=== PATIENT | female | born 1995 | race Caucasian/White ===

== ENCOUNTER 2020-08-26 11:30 | Outpatient (RCR) | payer OTHER, SELFPAY ==
--- NOTE | 2020-08-10 11:56 | STOPEVAL ---
SPEECH THERAPY INITIAL EVALUATION: Thank you for referring Tawanna Hooper to [facility].? The patient is scheduled to be seen for a trial therapy? x1/week for 4 weeks. Please review, sign, date and return this plan of care IESHA. I agree with and certify that the following plan of care is medically necessary. Referring Physician Date Attending Provider: Cristina Browning, * Outpatient Evaluation Start: 08/09/20 10:54 Freq: Status: Active Protocol: Document 08/09/20 16:10 CONSUELO (Rec: 08/09/20 16:11 [email or web address] [id number]) Therapy Assessment Status Assessment Status Assessment Status Evaluation Outpatient Past Medical History Past Medical History Source of Past Medical History Family/Significant Other Evaluation Information Problem Diagnosis developmentally delay; autism Onset childhood Additional Evaluation Detail Pt is in a work program through [employer] as well as receives Help at Home . She was receiving speech therapy through the work program x 1 per week until it was closed related to COVID. Pt's step father attended session with pt; a communication device ( Proxtalker by [employer]) was brought along. Device appeared to be old but per pt's father , it is the device the pt chooses to utilize the most. They have reportedly trialed tablets of various kinds but the pt destroys them but actually bending them, stabs them with a screwdriver, or smashes them. Per step father, pt is able to state immediate needs and wants at times using single words . They encourage use of the AAC device but appear limited due to pt behaviors. Reportedly, it is very rare the pt will string together several words as the father stated he only once heard her state, Please turn off the lights . He stated further that with prompts, she will s
--- NOTE | 2020-08-26 16:36 | PCSTNOTE ---
REQUEST FOR SPEECH GENERATING DEVICE (SGD) FUNDING Demographic Information: Patient: Tawanna Hooper Address: [address] , [place] [id number] Primary Contact : Luisana Mcmullen Date of : 1995 Medical Diagnosis: Autism Communication Diagnosis: Mixed Receptive Expressive Language Disorder Date of Onset: Insurance number: [id number] Physician: Dr. Cristina Browning Phone: Speech Language Pathologist: Leena Linares M.S. [facility] Date of this report: 08/26/20 Impairment Type and Severity Patient demonstrates severe difficulty expressing needs, thoughts, ideas, and asking questions. Patient demonstrates an inability to verbally meet daily and medical needs. Patient demonstrates frustration due to limited ability to communicate. Anticipated Course of Impairment Patient?s communication impairment is static. Despite aggressive direct speech therapy services patient?s ability to communicate basic needs and wants remains limited. Patient does not currently have a functional communication system. Patient is unable to direct and manage his/her medical care. Speech and Language Skills See attached initial speech-language evaluation on 08-10-20. Severe receptive and expressive language skills noted per evaluation. Cognitive Skills Patient has demonstrated the cognitive ability to use a SGD. Physical Status Patient displays the fine motor skills necessary to use effectively. Vision Status Patient has no impairments with vision and has demonstrated the ability to functionally see and use SGDs. Hearing Status Patient has no impairments with hearing and has demonstrated the ability to functionally hear SGDs. Specific Daily-Functional Communication Needs Patient must communicate regarding daily activities, personal needs, medical needs, and social interactions. Patient must communicate in these environments: home, school, and in the community. Patient must communicate with these partners: parents, peers, therapists, doctors other family and friends. Patient must communicate messages to express daily needs (hunger, thirst, pain), make requests, ask questions, offer information, express opinions/feelings and provide information. Ability to Meet Communication Needs without an SGD Patient?s speech does not allow patient to functionally meet all communication needs. Recommended Medicare/Medicaid Device Category The features identified as being required for patient to be a functional communicator describe additional tags /vocabulary for current communication system in the E2510 device category (i.e., synthesized speech, message formulation via multi-button combinations and other methods, multiple access methods). SGD and accessories recommended Tawanna's step father has joined her for all therapy sessions and has been helpful in communicating her history and current limits of the dedicated communication device she has. Her current available communication system being used is a ProxTalker by [employer] Prox Talker/AAC. This durable system has been used for the past 18 months and patient and family find it be useful. Tawanna has available to her 100 pictures with velcro that are placed onto as many as 6 buttons that can then form a complete sentence. Tawanna will utilize echolalia and repeat 3-4 word sentences but spontaneous communication is typically used with her current AAC system for highly motivating options such as bathroom and shopping . It is rare for her to use more than one word to communicate spontaneously although in therapy she was receptive to use longer word combinations with prompting and for rewards. It should be noted family is very capable and willing to edit buttons and build on more vocabulary however, at this time, they are limited due to the limited number of tags/pictures available for the system. For example, she can use I want b
--- NOTE | 2021-03-08 12:27 | PCSTNOTE ---
Parent, Mg, called today to ask about getting requested equipment. [employer] spoke to him to advise that complete evaluation was sent to physician and contact was attempted with vendor to get funded through insurance. Vendor was not able to provide solution and did not reply to e-mails requesting a fax to send request so that family may obtain needed equipment through insurance funding. Advised family we would again send a copy of the evaluation in hopes that they may be able to directly request the equipment needed.
== END 2020-10-05 12:50 | disposition home or self-care (01) ==
LOC: ANHST 11:30
PROVIDERS: PCP Family Medicine; Visit Provider Family Medicine
DX: R62.50 Unspecified lack of expected normal physiological development in childhood (principal)
CPT/HCPCS: 92507; 92607

== ENCOUNTER 2021-06-21 11:15 | Outpatient (RCR) | payer OTHER, SELFPAY ==
--- NOTE | 2021-04-05 14:13 | PEDSTEVAL ---
Thank you for referring Tawanna Hooper to [facility].? The patient is scheduled to be seen for therapy? 1x/week for 12 weeks. Please review, sign, date and return this plan of care IESHA. I agree with and certify that the following plan of care is medically necessary. Referring Physician Date Admitting Provider: Attending Provider: Cristina Browning, Referring Provider: COLEEN Pediatric Evaluation Start: 04/05/21 10:35 Freq: Status: Active Protocol: Document 04/05/21 09:45 Hakan (Rec: 04/05/21 14:13 [email or web address] [email or web address]) Therapy Assessment Status Assessment Status Assessment Status Evaluation Pt/Family Concern/Reason for Referral . Pt/Family Concern/Reason for Referral Tawanna has Autism and struggles with making her desires known or communicating feelings. Diagnosis Autism,Mixed Receptive/ Expressive Language Disorder Outpatient Past Medical History Past Medical History Source of Past Medical History Family/Significant Other Other Source of Past Medical History Mg Mcgarry Neurological History Hx Seizures Yes Cardiovascular History Hx Cardiac Disorders No Significant History Respiratory History Hx Respiratory Disorders No Significant History Gastrointestinal History Hx Other Gastrointestinal Disorders Yes: vomits on a daily basis, never seen GI Genitourinary History Hx Urinary Tract Infection Yes: chronic, partially due to hygiene Musculoskeletal History Hx Musculoskeletal Disorders No Significant History Hematological History Hx Hematological Disorders No Significant History Endocrine History Hx Endocrine Disorders No Significant History HEENT History Hx HEENT Disorders No Significant History Integumentary History Hx Skin Disorders No Significant History Reproductive History Hx Reproductive Disorders No Significant History Psychosocial History Hx Anxiety Yes Hx Depression Yes Hx Other Psychiatric Disorders Yes: high pain tolerance, has harmed self Pain History History of Any Previous or Ongoing No Significant History Instance of Pain Anesthesia History Hx Anesthesia Reactions No Significant History History History Without Complications / History Full-Term Hearing Hearing Concerns No Concern Vision Vision Concerns No Concern Pain Assessment Timing of Pain Assessment Timing of Pain Assessment Assessment Pain Scale Pain Scale Used Alla (FACES) Bueno-Sang Bueno-Domínguez Pain Scale No Pain Pain Score Pain Score
--- NOTE | 2021-05-17 11:05 | PCSTNOTE ---
Family called to cancel due to pt sick.
--- NOTE | 2021-05-24 10:36 | PCSTNOTE ---
Family called to cancel since Tawanna is still sick.
--- NOTE | 2021-06-07 17:41 | PCSTNOTE ---
Family called to cancel due to pt having surgery and she won't leave it alone .
--- NOTE | 2021-06-19 13:36 | PCSTNOTE ---
- Session cancelled in advance due to MANAGER SUMMER PTO and no other MANAGER SUMMER available to see pt.
--- NOTE | 2021-06-21 12:47 | PEDREH ---
I agree with and certify that the above recommended change(s) to the plan of care are medically necessary. ? Referring Physician?Date Admitting Provider: Attending Provider: Cristina Browning, Referring Provider: [facility] MYLES LOPES Tawanna Hooper has completed a total number of 9 of 12 treatment sessions for mixed receptive and expressive language disorder since her initial evaluation on 04-05-21. Tawanna presents with a medical diagnosis of Autism Spectrum Disorder. Summary of Progress: Tawanna is doing great in therapy and making nice gains toward all set goals. She has excellent family support as we work to find a communication system that really meets her needs. Over this past quarter, Tawanna had an infection in her belly button which eventually required surgery. Prior to this, the family understood something was wrong through observation of behaviors including limited patience and some aggressive behaviors (broke her t.v.). It is a yamile to see Tawanna's abilities. Trial communication devices are nearly complete which has included a total of 3 speech generating, alternative augmentative communication devices or AAC/SGD. Tawanna has proven her ability to navigate all 3 devices by initially being provided max cues, then cues are faded and some highly motivating words can be used independently. Her primary motivators have been foods and television shows. Once she has a dedicated system, we can expand on functional communication besides meeting hunger needs. For example, we have modeled and elicited use of emotion words and expression of pain through pretend play with baby. Progress on goals and updates have been provided on her plan of care which is attached. Recommendations: Thank you for referring Tawanna Hooper to [facility].? The patient is scheduled to be seen for therapy? 1x/week for 12 weeks.? Please review, sign, date and return this plan of care IESHA.
--- NOTE | 2021-07-12 18:13 | PCSTNOTE ---
This treatment is being continued on visit number [id number]. Please see documentation on both accounts to view progress. Completed interventions, outcomes, and problems have been marked as Inactive to facilitate the copying of the Care plan routine for recurring accounts.
== END 2021-07-04 23:59 | disposition home or self-care (01) ==
LOC: ANHPEDST 11:15
PROVIDERS: PCP Family Medicine; Visit Provider Family Medicine
DX: F84.0 Autistic disorder (principal)
CPT/HCPCS: 92507; 92523

== ENCOUNTER 2021-09-27 12:00 | Outpatient (RCR) | payer OTHER, SELFPAY ==
--- NOTE | 2021-07-12 18:12 | PCSTNOTE ---
07-05-21 Session cancelled due to BOXING INSTRUCTOR sick leave.
--- NOTE | 2021-07-12 18:12 | PCSTNOTE ---
The treatment documented on this account is a continuation of the treatment documented on visit number [id number]. Please see documentation on both accounts to view progress. The Plan of Care has been transitioned and updated within the new V#. I have addressed and agree with the discipline specific Problems, Interventions, and Goals for the current certification period. Completed interventions, outcomes, and problems have been marked as Inactive to facilitate the copying of the Care plan routine for recurring accounts.
--- NOTE | 2021-08-29 15:31 | PCSTNOTE ---
09-13-21 Session cancelled in advance due to STAFF NURSE ANESTHETIST PTO and family preferred no substitute therapist.
--- NOTE | 2021-09-18 15:24 | PCSTNOTE ---
Addendum entered by LETHA Foley 11/09/21 09:41: It should be noted in consideration of described behaviors in report that Tawanna will need additional screen protectors in an effort to best maintain a quality working communication device that will last over the years. A mounting plate will also be needed which is necessary equipment to use the requested mount. Original Note: REQUEST FOR SPEECH GENERATING DEVICE (SGD) FUNDING/ ST PROGRESS SUMMARY Demographic Information: Patient: Tawanna Hooper [address]: [address] [place] [address] [place] [address] Primary Contact : Mg Mcgarry Date of : 1995 Medical Diagnosis: Autism Spectrum Disorder Communication Diagnosis: Mixed Receptive and Expressive Language Disorder Date of Onset: Insurance number: [id number] Physician: Cristina Browning Speech Language Pathologist: Leena Linares M.S. [facility]-LIVESTOCK EXHIBITOR Date of this report: 09/18/21 Impairment Type and Severity Patient demonstrates severe difficulty expressing needs, thoughts, ideas, and asking questions. Patient demonstrates an inability to verbally meet daily and medical needs. Patient demonstrates frustration due to limited ability to communicate. Anticipated Course of Impairment Patient?s communication impairment is static. Despite aggressive direct speech therapy services patient?s ability to communicate basic needs and wants remains limited. Patient does not currently have a functional communication system. Patient is unable to direct and manage his/her medical care. Speech and Language Skills CLINICAL NARRATIVE Pragmatic Evaluation: Concerns Noted Patient DID Demonstrate the Presence of the Following Pragmatic Skills: Joint Attention, Eye Contact, Appropriate Behavior Pragmatics Strength Comments: Pt sits quietly without any protest during interview with caregiver. Patient DID NOT Demonstrate Consistent Presence of These Pragmatic Skills: Appropriate Behavior Pragmatics Deficit Comments: Patient presents with generally flat affect and only laughed in imitation of clinician. Family reported pt has a history of destructive behaviors such as breaking items and destroying/taking apart things. For example she has broken t.v's and tablets (one by piercing with screwdriver). As mentioned, these behaviors seem to be in relation to when she is in pain that she is unable to communicate such as when she had a bladder infection that caused hospitalization. Receptive Language: Concerns Noted Patient DID Demonstrate an Understanding of the Following Receptive Language Skills: Identifies Object, Follows Simple Directions, Use of Objects, Identifies Colors, Identifies Pictures, Identifies Body Parts, Maintains Attention Receptive Language Strengths Comments: Tawanna was also able to identify letters and may be able to read some simple words. After lots of practice, she has learned to cook a few things independently, can use the microwave and makes herself macaroni and cheese. She certainly tries to please with attempting to follow directions when asked (if provided a reward system). Patient DID NOT Demonstrate an Understanding of the Following Receptive Language Skills: Complex Directives, Understands Verbs, Understands Pronouns, Makes Inferences, Spatial Concepts, Quantity Concepts, Descriptive Concepts, Understands Negatives Expressive Language: Concerns Noted Patient DID Demonstrate the Ability to Consistently Complete the Following Expressive Language Skills: Communicates Nonverbally, Use Different Consonants, Names Objects & Pictures, Imitates Sounds, Imitates Words, Imitates Phrases, Imitates Sentences Patient DID NOT Demonstrate the Ability to Consistently Complete the Following Expressive Language Skills: Uses Basic Sentences, Uses Spatial Concept Words, Uses Pronouns, Uses Plurals, Uses Possessives, Uses Verbs with- ing Expressive Langu
--- NOTE | 2021-09-28 11:59 | PCSTNOTE ---
09/27/21, the student, Juliana Bray completed [facility] documentation on this patient. I have reviewed the student's documentation and agree with the findings.
--- NOTE | 2021-10-04 10:55 | PCSTNOTE ---
Family called to cancel due to pt being sick.
--- NOTE | 2021-10-11 10:34 | PCSTNOTE ---
This treatment is being continued on visit number [id number]. Please see documentation on both accounts to view progress. Completed interventions, outcomes, and problems have been marked as Inactive to facilitate the copying of the Care plan routine for recurring accounts.
== END 2021-10-10 23:59 | disposition home or self-care (01) ==
LOC: ANHPEDST 12:00
PROVIDERS: PCP Family Medicine; Visit Provider Family Medicine
DX: F84.0 Autistic disorder (principal)
CPT/HCPCS: 92507; 92607

== ENCOUNTER 2022-01-03 12:00 | Outpatient (RCR) | payer OTHER, SELFPAY ==
--- NOTE | 2021-10-11 10:32 | PCSTNOTE ---
The treatment documented on this account is a continuation of the treatment documented on visit number [id number]. Please see documentation on both accounts to view progress. The Plan of Care has been transitioned and updated within the new V#. I have addressed and agree with the discipline specific Problems, Interventions, and Goals for the current certification period. Completed interventions, outcomes, and problems have been marked as Inactive to facilitate the copying of the Care plan routine for recurring accounts.
--- NOTE | 2021-10-18 09:18 | PCSTNOTE ---
Family called to cancel due to inclement weather and poor road conditions.
--- NOTE | 2021-10-25 14:13 | PCSTNOTE ---
On 10/25/21, the student, Juliana Bray, provided care and completed [employer] documentation on this patient. I have reviewed the student's documentation and agree with the findings.
--- NOTE | 2021-11-01 17:11 | PCSTNOTE ---
On 11/01/21, the student, Juliana Bray, provided care and completed [employer] documentation on this patient. I have reviewed the student's documentation and agree with the findings.
--- NOTE | 2021-11-09 09:10 | PCSTNOTE ---
On 11/08/21, the student, Juliana Bray, provided care and completed [email or web address] documentation on this patient. I have reviewed the student's documentation and agree with the findings.
--- NOTE | 2021-11-15 10:10 | PCSTNOTE ---
Family called to cancel since they are at the hospital with Tawanna due to her having something in her belly button.
--- NOTE | 2021-11-22 09:20 | PCSTNOTE ---
Family called to cancel therapy today due to patient being upset this morning.
--- NOTE | 2021-11-29 15:04 | PCSTNOTE ---
On 11/29/21, the student, Juliana Bray, provided care and completed [employer] documentation on this patient. I have reviewed the student's documentation and agree with the findings.
--- NOTE | 2021-12-06 17:35 | PCSTNOTE ---
On 12/06/21, the student, Juliana Bray, provided care and completed [employer] documentation on this patient. I have reviewed the student's documentation and agree with the findings.
--- NOTE | 2021-12-13 15:17 | PCSTNOTE ---
On 12/13/21, the student, Juliana Bray, provided care and completed [employer] documentation on this patient. I have reviewed the student's documentation and agree with the findings.
--- NOTE | 2021-12-13 15:55 | PEDREH ---
I agree with and certify that the recommended change(s) to the plan of care are medically necessary. ? Referring Physician?Date Admitting Provider: Attending Provider: Cristina Browning, Referring Provider: ST BUENO REPORT Tawanna Hooper has completed a total number of 9 of 13 treatment sessions for mixed receptive and expressive language disorder since her last progress summary on 09-18-21. Tawanna presents with a medical diagnosis of Autism. She has a very limited vocabulary used verbally but has been very receptive to use of a speech generating device or alternative augmentative communication system (SGD/AAC). Tawanna is in the process of working to obtain a dedicated SGD which will be the [employer] with Touch Chat using [employer]. Summary of Progress: Tawanna has excellent family support who participate in an ongoing home program. In this past quarter, several sessions were missed due to Tawanna being sick and in one session she was crying for most of session and the session ended early with limited demands placed. She was hospitalized at the beginning of November due to realizing that she had placed several items in her belly button. The first time this happened, Tawanna had surgery and the open wound was closed but she then opened the wound and had placed a small wire, small nail and wooden fragments in the wound which caused infection. She has also suffered chronic UTIs and yeast infections. As indicated in her updated plan of care, a social story has been developed to help with improved understanding of taking care of our bodies and communicating pain. In consideration that Tawanna has only been using the SGD in our therapy sessions, she is making excellent gains with building on her vocabulary through the use of the SGD and family has reported this has helped to increase her verbal vocabulary in all settings. Updates and progress have been noted on her plan of care which is attached. Recommendations: Thank you for referring Tawanna Hooper to [facility].? The patient is scheduled to be seen for therapy? 1x/week for 12 weeks.? Please review, sign, date and return this plan of care IESHA.
--- NOTE | 2021-12-21 10:25 | PCSTNOTE ---
On 12/20/21, the student, Juliana Bray, provided care and completed [employer] documentation on this patient. I have reviewed the student's documentation and agree with the findings.
--- NOTE | 2021-12-27 11:31 | PCSTNOTE ---
Family called to cancel since pt is sick.
--- NOTE | 2022-01-03 17:32 | PCSTNOTE ---
On 01/03/22, the student, Juliana Bray, provided care and completed [employer] documentation on this patient. I have reviewed the student's documentation and agree with the findings.
--- NOTE | 2022-01-10 11:18 | PCSTNOTE ---
This treatment is being continued on visit number [id number]. Please see documentation on both accounts to view progress. Completed interventions, outcomes, and problems have been marked as Inactive to facilitate the copying of the Care plan routine for recurring accounts.
== END 2022-01-09 23:59 | disposition home or self-care (01) ==
LOC: ANHPEDST 12:00
PROVIDERS: PCP Family Medicine; Visit Provider Family Medicine
DX: F84.0 Autistic disorder (principal)
CPT/HCPCS: 92507

== ENCOUNTER 2022-03-21 12:00 | Outpatient (RCR) | payer OTHER, SELFPAY ==
--- NOTE | 2022-01-10 11:20 | PCSTNOTE ---
The treatment documented on this account is a continuation of the treatment documented on visit number [id number] Please see documentation on both accounts to view progress. The Plan of Care has been transitioned and updated within the new V#. I have addressed and agree with the discipline specific Problems, Interventions, and Goals for the current certification period. Completed interventions, outcomes, and problems have been marked as Inactive to facilitate the copying of the Care plan routine for recurring accounts.
--- NOTE | 2022-01-10 18:33 | PCSTNOTE ---
On 01/10/22, the student, Juliana Bray, provided care and completed [employer] documentation on this patient. I have reviewed the student's documentation and agree with the findings.
--- NOTE | 2022-01-17 09:36 | PCSTNOTE ---
Caregiver called to cancel due to having gout.
--- NOTE | 2022-01-30 09:42 | PCSTNOTE ---
No call no show for today's appointment which was a rescheduled session due to SLOT FLOORPERSON being out during their regular time tomorrow.
--- NOTE | 2022-02-14 12:39 | PCSTNOTE ---
Family called to cancel since Tawanna is sick.
--- NOTE | 2022-02-28 11:26 | PCSTNOTE ---
Family called to cancel due to personal reasons.
--- NOTE | 2022-03-02 13:51 | PEDREH ---
I agree with and certify that the above recommended change(s) to the plan of care are medically necessary. ? Referring Physician?Date Admitting Provider: Attending Provider: Cristina Browning, Referring Provider: [facility] REPORT Tawanna Hooper has completed a total number of 6 of 11 treatment sessions for mixed receptive and expressive language disorder since her last progress summary on 12-13-21. She presents with a medical diagnosis of Autism and has limited vocabulary verbally. Tawanna is in the process of obtaining a dedicated SGD/AAC , Sandrita Via Pro with Touch Chat using [email or web address] 60 Basic. Summary of Progress: Attendance has been a challenge this past quarter, primarily due to frequent illness with UTI's and infections with her belly button. If we are unable to maintain consistent attendance Tawanna will have be discharged from therapy in consideration of current attendance policy to allow for benefits of consistent therapy. This SUPERVISOR [employer]PA[employer] is hopeful that family will soon obtain their dedicated SGD/AAC at which point we can be sure the family is well educated on follow up use at home and understanding to use in daily routines to work toward Tawanna understanding the purpose and use of the communication device. With practice, she will have optimal opportunity to reach her full potential with receptive and expressive language skills. Family education for independent use of their dedicated SGD will be the focus over this next quarter with potential discharge after the next 12 weeks of therapy. Updates and progress have been noted on her plan of care which is attached. Recommendations: Thank you for referring [facility] to [facility].? The patient is scheduled to be seen for therapy? 1x/week for 12 weeks.? Please review, sign, date and return this plan of care IESHA.
--- NOTE | 2022-03-05 16:21 | PCSTNOTE ---
This week's therapy cancelled in advance for family vacation.
--- NOTE | 2022-03-21 14:52 | PCSTNOTE ---
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
--- NOTE | 2022-04-02 10:47 | PCSTNOTE ---
Addendum entered by Leena Linares, PHYSICS TECHNICAL OFFICER 04/02/22 10:48: No therapy this week - family agreed to return to regular schedule next week. Original Note: Family came early for today's appointment (by accident) so they had to leave with Tawanna upset and not understanding.
--- NOTE | 2022-04-11 15:09 | PCSTNOTE ---
This treatment is being continued on visit number [id number]. Please see documentation on both accounts to view progress. Completed interventions, outcomes, and problems have been marked as Inactive to facilitate the copying of the Care plan routine for recurring accounts.
== END 2022-04-10 23:59 | disposition home or self-care (01) ==
LOC: ANHPEDST 12:00
PROVIDERS: PCP Family Medicine; Visit Provider Family Medicine
DX: F84.0 Autistic disorder (principal)
CPT/HCPCS: 92507

== ENCOUNTER 2022-07-04 12:00 | Outpatient (RCR) | payer OTHER, SELFPAY ==
--- NOTE | 2022-04-11 15:08 | PCSTNOTE ---
The treatment documented on this account is a continuation of the treatment documented on visit number [id number]. Please see documentation on both accounts to view progress. The Plan of Care has been transitioned and updated within the new V#. I have addressed and agree with the discipline specific Problems, Interventions, and Goals for the current certification period. Completed interventions, outcomes, and problems have been marked as Inactive to facilitate the copying of the Care plan routine for recurring accounts.
--- NOTE | 2022-05-16 13:16 | PCSTNOTE ---
On 05/16/22, the student, Hilaria Sheth, provided care and completed [facility] documentation on this patient. I have reviewed the student's documentation and agree with the findings.
--- NOTE | 2022-05-23 14:17 | PCSTNOTE ---
On 05/23/22, the student, Hilaria Sheth, provided care and completed [facility] documentation on this patient. I have reviewed the student's documentation and agree with the findings.
--- NOTE | 2022-05-30 15:27 | PCSTNOTE ---
On 05/30/22, the student, Hilaria Sheth, provided care and completed [facility] documentation on this patient. I have reviewed the student's documentation and agree with the findings.
--- NOTE | 2022-05-30 17:39 | PEDREH ---
I agree with and certify that the above recommended change(s) to the plan of care are medically necessary. ? Referring Physician?Date Admitting Provider: Attending Provider: Cristina Browning, Referring Provider: PROGRESS REPORT Tawanna Hooper has completed a total number of 10 of 12 treatment sessions for mixed receptive and expressive language disorder since her last progress summary on 03-02-22. She presents with a medical diagnosis of Autism and has limited vocabulary verbally. Tawanna utilizes a dedicated communication device, AquaBling Via Pro with Touch Chat using [employer] 60 Basic. Summary of Progress: It is a pleasure to report that Tawanna has obtained her dedicated communication device this past quarter. Her family has been excellent with support by making modifications to the device to be personalized for her and her needs. Family is also working to have the device available and used in all settings such as at the ER to express her pain. Tawanna has made progress with emerging skills in being able to answer safety questions to include a phone number, address and name. She has emerging skills with using the device with purpose at home to meet daily needs and is expanding her vocabulary with the device and verbally. Updates and progress toward set goals have been noted on her plan of care which is attached. Recommendations: Thank you for referring Tawanna Hooper to [facility].? The patient is scheduled to be seen for therapy? 1x/week for 12 weeks.? Please review, sign, date and return this plan of care IESHA.
--- NOTE | 2022-06-20 15:57 | PCSTNOTE ---
On 06/20/22, the student, Hilaria Sheth, provided care and completed [facility] documentation on this patient. I have reviewed the student's documentation and agree with the findings.
--- NOTE | 2022-06-26 16:28 | PCSTNOTE ---
Family called to cancel for this week due to patient UTI.
--- NOTE | 2022-07-04 15:00 | PCSTNOTE ---
On 07/04/22, the student, Hilaria Sheth, provided care and completed [facility] documentation on this patient. I have reviewed the student's documentation and agree with the findings.
--- NOTE | 2022-07-11 09:47 | PCSTNOTE ---
Family called to cancel since Tawanna is sick.
--- NOTE | 2022-07-11 09:51 | PCSTNOTE ---
This treatment is being continued on visit number [id number]. Please see documentation on both accounts to view progress. Completed interventions, outcomes, and problems have been marked as Inactive to facilitate the copying of the Care plan routine for recurring accounts.
== END 2022-07-10 23:59 | disposition home or self-care (01) ==
LOC: ANHPEDST 12:00
PROVIDERS: PCP Family Medicine; Visit Provider Family Medicine
DX: F84.0 Autistic disorder (principal)
CPT/HCPCS: 92507

== ENCOUNTER 2022-08-15 12:00 | Outpatient (RCR) | payer OTHER, SELFPAY ==
--- NOTE | 2022-07-11 09:49 | PCSTNOTE ---
The treatment documented on this account is a continuation of the treatment documented on visit number [id number]. Please see documentation on both accounts to view progress. The Plan of Care has been transitioned and updated within the new V#. I have addressed and agree with the discipline specific Problems, Interventions, and Goals for the current certification period. Completed interventions, outcomes, and problems have been marked as Inactive to facilitate the copying of the Care plan routine for recurring accounts.
--- NOTE | 2022-07-11 10:05 | PCSTNOTE ---
Family called to cancel today due to Tawanna being sick.
--- NOTE | 2022-07-18 15:49 | PCSTNOTE ---
On 07/18/22, the student, Hilaria Sheth, provided care and completed [facility] documentation on this patient. I have reviewed the student's documentation and agree with the findings.
--- NOTE | 2022-07-25 13:24 | PCSTNOTE ---
On 07/25/22, the student, Hilaria Sheth, provided care and completed [facility] documentation on this patient. I have reviewed the student's documentation and agree with the findings.
--- NOTE | 2022-08-01 17:16 | PCSTNOTE ---
On 08/01/22, the student, Hilaria Sheth, provided care and completed [facility] documentation on this patient. I have reviewed the student's documentation and agree with the findings.
--- NOTE | 2022-08-08 08:39 | PCSTNOTE ---
Family called to cancel this date since they thought we were closed and made a conflicting appointment.
--- NOTE | 2022-08-22 14:13 | PCSTNOTE ---
Family called the morning of therapy session to cancel due to pt having bladder infection.
--- NOTE | 2022-08-27 13:31 | PCSTNOTE ---
SPEECH THERAPY DISCHARGE SUMMARY Admitting Provider: Attending Provider: Cristina BrowningMD Patient:Tawanna Hooper Date of :1995 Tawanna Hooper has attended a total of 9 of 13 possible therapy sessions for mixed receptive and expressive language disorder since her last progress summary on 05-30-22. She presents with a medical diagnosis of Autism and has limited vocabulary verbally. Tawanna utilizes a dedicated communication device, [employer]on[employer]r Via CoupOption with Touch Chat using [employer] Basic. Over this past quarter, family has been provided with several written handouts to target using the AAC/SGD in all environments. Parent education has been targeted with good airline lounge receptionist. Family has verbalized understanding of being able to follow up with the communication device and the home program has been established. Tawanna has become more vocal since receiving her device and has made great progress with using and understanding the navigation to a wide variety of vocabulary. She has enjoyed playing Bingo to learn theme vocabulary so we have taken steps to learn how to play a normal Bingo game. Family understands Tawanna will need some practice before being able to play Bingo in the community but they are working towards this. HOSTESS HOST and family have agreed that Tawanna has reached her optimal communication potential at this time. She will be discharged for direct therapy services. The goals have been met to best of her ability. Thank you for referring this patient to [facility]. Please review, sign, date and return this discharge summary IESHA. I have been updated about the patient's current status and I agree with discharge from the above service at this time. Referring Physician Date
== END 2022-08-27 17:52 | disposition home or self-care (01) ==
LOC: ANHPEDST 12:00
PROVIDERS: PCP Family Medicine; Visit Provider Family Medicine
DX: F84.0 Autistic disorder (principal)
CPT/HCPCS: 92507; 99199